=== PATIENT | male | born 1970 | race Asian ===

== ENCOUNTER 2020-07-29 23:41 | Emergency (ER) | payer BC ==
[~2020-07-29] VITALS: Ht 177.8 cm; Wt 91.9 kg
[2020-07-29 23:43] VITALS: BP 134/91
--- NOTE | 2020-07-30 02:26 | NUR ---
XRAY AT BEDSIDE
--- NOTE | 2020-07-30 03:16 | NUR ---
F/U AND D/C INSTRUCTIONS GIVEN TO PT AND HE V/U. PRESCRIPTIONS GIVEN TOO.
== END 2020-07-30 03:21 | disposition home or self-care (01) ==
LOC: ED 07-30 03:00
DX: S68.012A Complete traumatic metacarpophalangeal amputation of left thumb, initial encounter (principal); M10.9 Gout, unspecified; V89.2XXA Person injured in unspecified motor-vehicle accident, traffic, initial encounter; Y93.89 Activity, other specified; Y92.410 Unspecified street and highway as the place of occurrence of the external cause; Y99.8 Other external cause status
CPT/HCPCS: 29130; 99283